=== PATIENT | female | born 1975 ===

== ENCOUNTER 2025-09-01 11:02 | Inpatient (IN) | payer OTHER ==
[~2025-09-01] VITALS: Ht 157.5 cm; Wt 59.0 kg
[2025-09-01 11:30] VITALS: BP 111/70
[2025-09-13] MEDS ORDERED: POVIDONE-IODINE 118 ML BOTT TOP ONE (09:15)
[2025-09-13] MEDS ORDERED: CEFAZOLIN SODIUM 1,000 MG VIAL IV SCH ×2 (09:15→12:00)
[2025-09-13] MEDS ORDERED: HEMOSTATIC MATRIX 1 KIT KIT TOP ONE (09:45)
[2025-09-13] MEDS ORDERED: RINGERS SOLUTION,LACTATED 1,000 ML IV SCH (10:30)
[2025-09-13] MEDS ORDERED: MORPHINE SULFATE 4 MG/ML VIAL IV SCH (12:00)
[2025-09-13 14:32] VITALS: BP 110/72
[2025-09-13 14:43] LABS: BASO % 0.1 % (0.1-1.2); EOS # 0.00 (0.04-0.54); EOS % 0.0 % (0.7-7.0); LYMPH # 0.40 (1.18-3.74); LYMPH % 2.5 % (19.3-53.1); MEAN PLATELET VOLUME 11.80 fl (9.4-12.4); MONO # 0.27 (0.24-0.82); MONO % 1.7 % (4.7-12.5); NEUT # 15.20 (1.56-6.13); NEUT % 94.5 % (34.0-71.1); RED CELL DISTRIBUTION WIDTH 13.2 % (11.6-14.4)
[2025-09-13 16:40] VITALS: BP 128/80
[2025-09-13] MEDS ORDERED: ONDANSETRON HCL 2 MG/ML VIAL IV SCH (17:00)
[2025-09-14] VITALS: BP 116/69
[2025-09-14 04:30] VITALS: BP 113/67
[2025-09-14 08:55] VITALS: BP 114/71
[2025-09-14] MEDS ORDERED: ENOXAPARIN SODIUM 40 MG/0.4 ML SYRINGE SUBCUTANEO SCH (09:00)
[2025-09-14] MEDS ORDERED: GABAPENTIN 300 MG CAPSULE PO SCH (09:00)
[2025-09-14] MEDS ORDERED: ONDANSETRON HCL 2 MG/ML VIAL IV PRN (09:45)
[2025-09-14 16:16] VITALS: BP 114/68
[2025-09-15] VITALS: BP 109/73
[2025-09-15] MEDS ORDERED: IBUPROFEN800 MG PO (05:42)
[2025-09-15] MEDS ORDERED: GABAPENTIN300 MG PO (05:42)
[2025-09-15 09:00] VITALS: BP 115/75
== END 2025-09-15 08:34 | disposition home or self-care (01) | DRG 743 ==
LOC: OB/GYN 09-13 09:00 → O/R 09-13 09:00 → SURH 09-13 11:15 → OB/GYN 09-13 13:07 → SURH 09-13 13:15 → OB/GYN 09-13 14:47
PROVIDERS: ADMIT Obstetrics & Gynecology Gynecology; ATTEND Obstetrics & Gynecology Gynecology
PROC: 0UT70ZZ Resection of Bilateral Fallopian Tubes, Open Approach (ICD-10-PCS; 2025-09-13)
PROC: 0USG0ZZ Reposition Vagina, Open Approach (ICD-10-PCS; 2025-09-13)
PROC: 0UT90ZZ Resection of Uterus, Open Approach (ICD-10-PCS; principal; 2025-09-13 13:15)
DX: D25.1 Intramural leiomyoma of uterus (principal); N80.03 Adenomyosis of the uterus; N72 Inflammatory disease of cervix uteri